=== PATIENT | female | born 1970 | race African-American/Black ===

== ENCOUNTER 2017-05-07 00:27 | Emergency (ER) | payer BC ==
[2017-05-07] MEDS ORDERED: DIPHENHYDRAMINE HCL 50 MG/ML VIAL IV ONE (03:58)
[2017-05-07] MEDS ORDERED: KETOROLAC TROMETHAMINE INJ/PF 30 MG/1 ML SDV IV ONE (03:58)
[2017-05-07] MEDS ORDERED: METOCLOPRAMIDE HCL INJ/PF 10 MG/2 ML SDV IV ONE (03:58)
--- NOTE | 2017-05-07 04:27 | RADIOLOGY REPORT (SQ) ---
EXAM DESCRIPTION: CT HEAD WITHOUT COMPLETED DATE/TIME: 05/07/2017 4:13 am REASON FOR STUDY: headache COMPARISON: CT head 08/18/2014. TECHNIQUE: Axial images acquired through the brain without intravenous contrast. Images reviewed wi th bone, brain and subdural windows. Images stored on PACS. All CT scanners at this facility use dose modulation, iterative reconstruction, and/or weight based d osing when appropriate to reduce radiation dose to as low as reasonably achievable (ALARA). [facility]: Dose Right [facility]: CareDose [facility]: Dose Right [facility]: Teradose 4D [facility]: [employer] RADIATION DOSE: mGy. LIMITATIONS: None. FINDINGS: VENTRICLES: Normal size and contour. CEREBRUM: No mass effect. No hemorrhage. No midline shift. Normal martínez/white matter differentiatio n. No evidence for acute territorial infarction. CEREBELLUM: No mass effect. No hemorrhage. No alteration of density. No evidence for acute infarct ion. EXTRAAXIAL SPACES: No fluid collections. ORBITS AND GLOBE: Symmetrical contour of the globes. CALVARIUM: No depressed skull fracture. PARANASAL SINUSES: No air-fluid level. SOFT TISSUES: No hematoma. IMPRESSION: No acute intracranial hemorrhage or acute territorial infarct. TECHNICAL DOCUMENTATION: JOB ID: [id number] [facility] Quality ID # [id number]: Final reports with documentation of one or more dose reduction techniques (e.g., Au tomated exposure control, adjustment of the mA and/or kV according to patient size, use of iterative reconstruction technique) 2010 [employer]- All Rights Reserved
--- NOTE | 2017-05-07 05:18 | ER Document Report ---
ED General - General Chief Complaint: Dizziness Stated Complaint: DIZZINESS Time Seen by Provider: 05/07/17 03:53 Notes: Patient is a 46-year-old female presents with complaint of back pain. The back pain is been ongoing for several months. It is unchanged. Starts in the right side of her back and goes down her right leg. No weakness or numbness into the leg. No loss of bowel control. No inability to urinate. No difficulty walking. Patient's second complaint is of a headache. Headache started today. Headache was mild in the beginning and then gradually worsened throughout the night. Headache is in the frontal aspect of her head. It is bilateral. No vomiting. No fevers. No weakness or numbness into her extremities. She has had similar headaches in the past. She said they usually occur relation to her blood pressure. She has never had imaging in the past to evaluate her head. No family history of cerebral aneurysms. No other complaints at this time. TRAVEL OUTSIDE OF THE [place] IN LAST 30 DAYS: No - Related Data Allergies/Adverse Reactions: No Known Allergies Allergy (Verified 07/29/12 10:13) Past Medical History - Social History Smoking Status: Unknown if Ever Smoked Frequency of alcohol use: None Drug Abuse: None Family History: Reviewed & Not Pertinent Patient has suicidal ideation: No Patient has homicidal ideation: No - Past Medical History Cardiac Medical History: Reports: Hx Hypertension Endocrine Medical History: Reports: Hx Diabetes Mellitus Type 2 Renal/ Medical History: Denies: Hx Peritoneal Dialysis GI Medical History: Reports: Hx Gastritis Past Surgical History: Reports: Hx Section - x1 - Immunizations Hx Diphtheria, Pertussis, Tetanus Vaccination: Yes Review of Systems - Review of Systems Notes: My Normal Review Basic REVIEW OF SYSTEMS: CONSTITUTIONAL : Denies fever, chills, or sweats. Denies recent illness. EENT: Denies eye, ear, throat, or mouth pain or symptoms. Denies nasal or sinus congestion. CARDIOVASCULAR: Denies chest pain. RESPIRATORY: Denies cough, cold, or chest congestion. Denies shortness of breath, difficulty breathing, or wheezing. GASTROINTESTINAL: Denies abdominal pain. Some nausea. No vomiting. GENITOURINARY: Denies difficulty urinating, painful urination, burning, frequency, or blood in urine. MUSCULOSKELETAL: Low back pain. SKIN: Denies rash or skin lesions. NEUROLOGICAL: Denies altered mental status or loss of consciousness. Has a headache. Denies weakness or paralysis or loss of use of either side. Denies problems with gait or speech. Denies sensory or motor loss. PSYCHIATRIC: Denies anxiety or stress or depression. ALL OTHER SYSTEMS REVIEWED AND NEGATIVE. Physical Exam - Vital signs Vitals: Temp Pulse Resp BP Pulse Ox 98.6 F 83 18 156/92 H 100 05/07/17 00:52 05/07/17 00:52 05/07/17 00:52 05/07/17 00:52 05/07/17 00:52 - Notes Notes: General Appearance: Well nourished, alert, cooperative, no acute distress, mild obvious discomfort. Vitals: reviewed, See vital signs table. Head: no swelling or tenderness to the head Eyes: PERRL, EOMI, Conjuctiva clear Mouth: No decreasd moisture Lungs: No wheezing, No rales, No rhonci, No accessory muscle use, good air exchange bilaterally. Heart: Normal rate, Regular rythm, No murmur, no rub Back: Some pain to palpation over the right lumbar paraspinal musculature. Remainder of back is nontender. Abdomen: Normal BS, soft, No rigidity, No abdominal tenderness, No guarding, no rebound, no abdominal masses, no organomegaly Extremities: strength 5/5 in all extremities, good pulses in all extremities, no swelling or tenderness in the extremities, no edema. Skin: warm, dry, appropriate color, no rash Neuro: speech clear, oriented x 3, normal affect, responds appropriately to questions. Cranial nerves II through XII are intact. Distal sensation intact. Patient is good strength in all 4 extremities. Normal patellar reflexes. Patient is able stand and balance herself without difficulty. Normal Romberg. Normal gait. Course - Vital Signs Vital signs: Temp Pulse Resp BP Pulse Ox 98.6 F 83 18 156/92 H 100 05/07/17 00:52 05/07/17 00:52 05/07/17 00:52 05/07/17 00:52 05/07/17 00:52 - Transfer of Care Notes: 05/07/17 05:[address] scan of this patient has had several similar headaches in the past but never had imaging. CT scan was negative. Patient's headache is completely resolved. I do not suspect subarachnoid hemorrhage because the headache is very gradual in onset. She has no associated focal neurologic deficits. Patient also has chronic low back pain with sciatica. She has no signs of central cord impingement on exam. I will discharge her home with prescription for muscle relaxer. Also discharge her home with prescription of Reglan to take with Benadryl for the recurring headaches. Encouraged her follow -up closely with her primary care doctor for reevaluation. Patient agrees with plan and will be discharged home. Patient encouraged to return to ER if she has worsening pain, any weakness or numbness into her legs, any fevers, any loss of bowel control, any urinary retention, or intractable vomiting. Dictation of this chart was performed using voice recognition software; therefore, there may be some unintended grammatical errors. Discharge - Discharge Clinical Impression: Headache Qualifiers: Headache type: unspecified Headache chronicity pattern: acute headache Intractability: not intractable Qualified Code(s): R51 - Headache Back pain Qualifiers: Back pain location: low back pain Chronicity: chronic Back pain laterality: right Sciatica presence: with sciatica Sciatica laterality: sciatica of right side Qualified Code(s): M54.41 - Lumbago with sciatica, right side Condition: Good Disposition: HOME, SELF-CARE Additional Instructions: LOW BACK PAIN: Three out of every four people will have an episode of disabling back pain during their lifetime. Most commonly the pain is due to straining of the muscles and ligaments in the low back. Usual treatment includes: (1) Rest on a firm surface. Avoid lying on your stomach. (2) Ice pack the painful area. After a few days, gentle heat may be used intermittently to relax the area, or ice packs can be continued. (3) Medication may be needed -- muscle relaxers and antiinflammatory medicines are commonly used. (4) As the back improves, exercises are prescribed to strengthen the back and abdominal muscles. Your doctor will advise you on the proper care for your back at each stage in your recovery. You may be better in a few days -- or healing may take several weeks. If new symptoms of a "herniated disc" (radiation of pain, numbness, or tingling down the back of the leg or weakness in the leg) occur, you should be re-examined. Further testing may be necessary. PAIN MEDICATION INJECTION: You have received an injection of a pain medication. You should experience significant pain relief within 45 minutes. If this injection was a narcotic -- it will impair your judgement, slow your reaction time and make you sleepy (as well as relieve your pain). Narcotics also can cause nausea. You should not drive, work with machinery, or perform any task requiring mental alertness until all effects of the medication are gone -- six to eight hours. Do not take any alcohol, or sedatives, and do not take any other medication without checking with your physician. MUSCLE RELAXERS: Muscle relaxing medications are usually prescribed for acute muscle spasm or injury to the neck and back. They are often combined with antiinflammatory pain medication for increased relief. You may stop the muscle relaxer when the pain and stiffness have improved. Start the medication again if spasms recur. Muscle relaxers may cause drowsiness, especially with the first dose. Do not operate machinery or drive while under the effects of the medication. Most muscle relaxers last up to 24 hours. Do not combine the medication with alcohol. ICE PACKS: Apply ice packs frequently against the painful area. Many different schedules are recommended, such as "20 minutes on, 20 minutes off" or "one hour ice, two hours rest." If you need to work, you may need to go longer between ice treatments. You should plan to have the area ice packed AT LEAST one fourth of the time. The ice should be applied over the wrap, tape, or splint, or over a layer of cloth -- not directly against the skin. Some ice bags have a built-in cloth and can be put directly on the skin. WARM PACKS: After approximately two days, apply gentle heat (such as a heating pad or hot water bottle) for about 20 to 30 minutes about every two hours -- at least four times daily. Warmth and elevation will help you make a more rapid recovery , and will ease the pain considerably. Do not use HOT heat, and never apply heat for longer than 30 minutes. The continuous heat can invisibly damage skin and muscles -- even when no burn is seen on the surface. Damaged muscles can make you MORE sore. FOLLOW-UP CARE: If you have been referred to a physician for follow-up care, call the physician s office for an appointment as you were instructed or within the next two days. If you experience worsening or a significant change in your symptoms, notify the physician immediately or return to the Emergency Department at any time for re-evaluation. HEADACHE: The physician does not feel that the headache you are experiencing has a serious underlying cause. Most headaches are due to emotional stress, with resultant muscle tension (tension headache). Occasionally, headaches are secondary to changes in the blood vessels of the scalp (vascular headache and migraine headache). Sometimes, a headache is the first symptom of another developing illness, such as a viral infection. You have no evidence of stroke, bleeding, meningitis, or other serious cause of your headache. The treatment of headaches varies with the severity and cause of the pain. Not all headaches need pain shots. In fact, there is evidence that using narcotics for headaches may make them worse in the long run. The physician will determine the therapy that's in your best interest. If you develop a fever, if the headache is different from any you've previously experienced, or if the headache progressively worsens, then call your physician at once or go to the emergency room. REGLAN (METOCLOPRAMIDE): Reglan has been prescribed. This medicine affects the stomach and intestines. It can be used to treat nausea and vomiting, to prevent reflux of stomach acid up into the esophagus, or to increase the contractions of the stomach and intestines. It is often prescribed for esophagitis, and for paralysis of the stomach in diabetics. Reglan can cause either mild restlessness or drowsiness. You should contact the doctor at once if you become extremely restless, anxious, or cannot sleep, or if you develop uncontrollable motions of the lips, tongue, or jaw. Do not take alcohol with this medicine. Do not drive or operate machinery until you have been taking this medicine long enough to know how it affects you. Call the doctor if you develop abdominal pains, lightheadedness, black stool, or blood in the stool or vomitus. USE OF DIPHENHYDRAMINE: Diphenhydramine (Benadryl) is an antihistamine and has been recommended to help treat your headache and to prevent side effects of other medications used to treat headaches. The medication can be repeated four times daily. Age Elixir (12.5 mg/tsp) 25 mg pill adult 1-2 tabs Antihistamines may cause drowsiness, especially with the first dose. Do not operate machinery or drive while under the effects of the medication. Do not combine the medication with alcohol, or with any other medication without talking to your doctor. FOLLOW-UP CARE: If you have been referred to a physician for follow-up care, call the physician s office for an appointment as you were instructed or within the next two days. If you experience worsening or a significant change in your symptoms, notify the physician immediately or return to the Emergency Department at any time for re-evaluation. Please return to the ER if you have worsening pain, fevers, loss of bowel control, inability to urinate, leg weakness, worsening leg numbness, or if you feel unwell. Please do not drive after taking the prescribed medications as they may make you sleepy and impair your judgement. Prescriptions: Metaxalone [Skelaxin 800 mg Tablet] 800 mg PO ASDIR PRN #20 tablet PRN Reason: Metoclopramide HCl [Reglan 10 mg Tablet] 1 tab PO ASDIR PRN #25 tablet PRN Reason: Forms: Return to Work
[2017-05-07 06:07] VITALS: BP 143/92
== END 2017-05-07 05:55 | disposition home or self-care (01) ==
LOC: ER 00:27
DX: R51 Headache (principal); M54.41 Lumbago with sciatica, right side; R42 Dizziness and giddiness; I10 Essential (primary) hypertension; E11.9 Type 2 diabetes mellitus without complications
CPT/HCPCS: 99284; 96374; 96375; 70450; J1200; J1885; J2765

== ENCOUNTER 2019-06-06 16:30 | Emergency (ER) | payer BC ==
[2019-06-06] MEDS ORDERED: FAMOTIDINE INJ/PF 20 MG/2 ML SDV IV ONE (17:35)
[2019-06-06] MEDS ORDERED: DIPHENHYDRAMINE HCL 50 MG/ML VIAL IV ONE (17:35)
[2019-06-06] MEDS ORDERED: METHYLPREDNISOLONE INJ 125 MG/2 ML SDV IV ONE (17:35)
--- NOTE | 2019-06-06 17:36 | ER Document Report ---
ED Medical Screen (RME) - General Chief Complaint: Allergic Reaction Stated Complaint: POSSIBLE INSECT BITE Time Seen by Provider: 06/06/19 17:30 Mode of Arrival: Ambulatory Information source: Patient Notes: Patient states that she got bit by an insect to the left side of her neck around 3:00 today. Patient complains of swelling and itching to left side of neck. Patient states she does have some scratchiness to the throat although no difficulty breathing. Patient reports an allergy to bee stings. I have greeted and performed a rapid initial assessment of this patient. A comprehensive ED assessment and evaluation of the patient, analysis of test results and completion of the medical decision making process will be conducted by additional ED providers. TRAVEL OUTSIDE OF THE [place] IN LAST 30 DAYS: No - Related Data Allergies/Adverse Reactions: No Known Allergies Allergy (Verified 06/06/19 16:36) Past Medical History - Past Medical History Cardiac Medical History: Reports: Hx Hypertension Endocrine Medical History: Reports: Hx Diabetes Mellitus Type 2 Renal/ Medical History: Denies: Hx Peritoneal Dialysis GI Medical History: Reports: Hx Gastritis Past Surgical History: Reports: Hx Section - x1 - Immunizations Hx Diphtheria, Pertussis, Tetanus Vaccination: Yes Physical Exam - Vital signs Vitals: Temp Pulse Resp BP Pulse Ox 98.7 F 102 H 14 154/99 H 93 06/06/19 16:40 06/06/19 16:40 06/06/19 16:40 06/06/19 16:40 06/06/19 16:40 - General Notes: Patient with raised erythematous lesions to left shoulder and trapezius area, lesions do not look like typical hives and are raised and indurated. Course - Vital Signs Vital signs: Temp Pulse Resp BP Pulse Ox 98.7 F 102 H 14 154/99 H 93 06/06/19 16:40 06/06/19 16:40 06/06/19 16:40 06/06/19 16:40 06/06/19 16:40
[2019-06-06] MEDS ORDERED: DIPHENHYDRAMINE HCL 25 MG CAPSULE PO ONE (19:09)
[2019-06-06] MEDS ORDERED: FAMOTIDINE 20 MG TABLET PO ONE (19:09)
[2019-06-06] MEDS ORDERED: PREDNISONE 20 MG TABLET PO ONE (19:09)
--- NOTE | 2019-06-06 19:52 | ER Document Report ---
HPI - HPI Patient complains to provider of: insect bite, allergic reaction Time Seen by Provider: 06/06/19 17:30 Onset/Duration: Sudden, Persistent Quality of pain: Achy Severity: Moderate Pain Level: 2 Context: 48 yr old female pt, with the listed pmh to include DM2 and htn, here for and itchy minimally painful rash to her posterior and left lateral neck x the last few hours. states she was just sitting there and all of the sudden she felt some type of insect biting her on the back and left side of her neck right around her shirt collar line several times. states she started swatting and patting at the area and flicked the bug off but she never actually saw what type of bug it was. denies any bites any where else. she states not long after it happened her t hroat felt a tiny bit "weird" and scratchy so she took one otc benadryl around 3hrs ago and due to itching persisting and insect bite areas getting larger she came in for eval. she states her sugars run well and her last A1c was good she was told. no hx of dka. she is only on oral hypoglycemics. she denies any abnormal throat sensation or other sx now. denies tongue or lip swelling. denies any hx of anaphylaxis to insects or in general previously. no other known new exposures/meds/foods/sick contacts/hx of this before/recent travel/pets. no one around them has it. no hx of drug use. no other known source or cause. no recent illness, or recent abx or steroids. no hx of asthma. rash is itchy, painful, and without bleeding/drainage. hasn't sought care until now. no tick bites. rash started on neck. utd on shots. hasn't put anything on it. benadryl taken. no trouble breathing/swallowing/handling secretions. no hx of familial urticaria or stress induced urticaria. denies . no other complaints at this time. Similar symptoms previously: No Recently seen / treated by doctor: No - ROS Systems Reviewed and Negative: Yes All other systems reviewed and negative - to include 10 systems, unless mentioned in the hpi - REPRODUCTIVE Reproductive: DENIES: : - DERM Skin Color: Normal Past Medical History - General Information source: Patient - Social History Smoking Status: Never Smoker Chew tobacco use (# tins/day): No Frequency of alcohol use: Occasional Drug Abuse: None Family History: Reviewed & Not Pertinent Patient has suicidal ideation: No Patient has homicidal ideation: No - Past Medical History Cardiac Medical History: Reports: Hx Hypertension Pulmonary Medical History: Denies: Hx Asthma, Hx Respiratory Failure Endocrine Medical History: Reports: Hx Diabetes Mellitus Type 2. Denies: Hx Hyperthyroidism, Hx Hypothyroidism Renal/ Medical History: Denies: Hx Peritoneal Dialysis GI Medical History: Reports: Hx Gastritis, Hx Gastroesophageal Reflux Disease, Hx Hiatal Hernia Psychiatric Medical History: Reports: Hx Anxiety Infectious Medical History: Reports: None Past Surgical History: Reports: Hx Section - x1 - Immunizations Immunizations up to date: Yes Hx Diphtheria, Pertussis, Tetanus Vaccination: Yes Vertical Provider Document - CONSTITUTIONAL General Appearance: No Apparent Distress Notes: GENERAL_APPEARANCE: alert, cooperative, no_obvious_discomfort. pleasant, middle aged female, smiling, speaking in full sentences, easily sitting up, in no sign of pain or resp distress. not intractably scratching, no sign of anaphylaxis. VITALS: reviewed, see vital signs table. HEAD: normocephalic, atraumatic, no gordon signs, no raccoon eyes EYES: conjunctiva_clear. EOMI, PERRL. no eyelid swelling. no photophobia, no drainage EARS: normal tms and canals bilat, no rash. no drainage NOSE:no drainage or bleeding MOUTH: (-)decreased moisture. THROAT: no_tonsilar_inflammation/hypertrophy/exudate, no_airway_obstruction. no tongue or lip swelling, no drooling, tripoding, voice change or stridor. no sign of anaphylaxis. no oral lesions. no thrush NECK: no tenderness or swelling. full rom. full strength. no meningeal signs. no lymphadenopathy. no thyromegaly. LUNGS: no_wheezing, ctab, (-)accessory muscle use, good air exchange bilateral. HEART: normal_rate, normal_rhythm, ABDOMEN: normal_BS, soft, no abd tenderness, no guarding, rebound, distension, or peritoneal signs, no cva ttp EXTREMITIES: strength 5/5 in all extremities, no swelling\\tenderness in the extremities, no edema. full rom. normal gait. brisk cap refill. 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 NEURO: motor and sensation intact to light touch, cranial nerves 2-12 intact, cerebellar fxn intact SKIN: warm, dry, good color, rash: there are approx <10 raised erythematous maculopapules varying in in size from 0.5cm up to 2cm roughly that are circular and scattered on the posterior neck where it is the worst and also on the left posterior aspect of the neck that appear to have a large localized allergic reaction to whatever insect bit her. they are not anteirorly or on the right side or circumferentially. there is no actual throat swelling. no sign of ludwigs or peritonsilar abscess, no necrosis, areas with minimal ttp. There is no fluctuation, drainage, streaking, bleeding, or drainable fluid collection. There is no central clearing. not tinea or classic hive like. It does hannah. not dermatomal. not on palms soles, intraorally, or in the webspaces. no sign of tens, erythema multiforme, or mayte nagi. no target lesions. MENTAL_STATUS: speech clear, oriented_X_3, responds appropriately to questions. - INFECTION CONTROL TRAVEL OUTSIDE OF THE [place] IN LAST 30 DAYS: No Course - Re-evaluation Re-evalutation: pt here for a likely small area that has a large localized allergic reaction to some unknown insect bites mostly on the back of her neck and some on the left side of her neck more posterior than anterior. she has no airway involvement. no sign of anaphylaxis, she is non toxic. responded well to triage meds listed po. feels back to her baseline other than some residual itching over the bites. she has no prior hx of anaphylaxis. advised sx care. will dc with benadryl, zantac, and steroids for a few days. she is a type 2 diabetic only on oral hypoglycemics and assures me she has good control of her sugars. advised her the steroids may make her sugars rise and she needs to keep a close check on her sugars while on them and for a few days after and return to the er if they get high. i do feel steroids are warranted given the large localized allergic reaction to these insect bites and its location anatomically. gave medication precautions. will also dc with an epipen should sx worsen or reoccur and instructed her extensively on only when to use it and then to immediately call 911 should she have to use it. she can also apply cool compresses to the area. tylenol or motrin prn pain. hydrocortisone cream to the area. advised sx care. 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 return for any worsening symptoms. vss. well appearing. satting well on ra. neurononfocal. pt understands and agrees to plan. On reexam, pt improved with tx listed. remained stable. nontoxic. well appearing. pain and sx controlled. tolerating po. requesting to go home. no sign of anaphylaxis. rash minimizing in size. serial exams continue to improve and remain reassuring after an appropriate period of observation in attempt to prevent any worsening of sx. vitals improved. Documentation achieved through voice recording which my lead to some occasional accidental typographical errors. Extensive efforts have been made to proof read documentation to make sure these are the least as possible. Category Date Time Status Saline Lock (ED) NOW Care 06/06/19 17:35 Active Vital Signs (ED) STAT Care 06/06/19 20:19 Active Diphenhydramine HCl [Benadryl 25 mg Capsule] Med 06/06/19 19:09 Discontinued 25 mg PO NOW ONE Famotidine [Pepcid 20 mg Tablet] Med 06/06/19 19:09 Discontinued 20 mg PO NOW ONE Prednisone [Deltasone 20 mg Tablet] Med 06/06/19 19:09 Discontinued 60 mg PO NOW ONE - Vital Signs Vital signs: Temp Pulse Resp BP Pulse Ox 98.7 F 102 H 14 154/99 H 93 06/06/19 16:40 06/06/19 16:40 06/06/19 16:40 06/06/19 16:40 06/06/19 16:40 Temp Pulse Resp BP Pulse Ox 06/06/19 20:21 98.4 F 73 16 142/90 H 100 06/06/19 16:40 98.7 F 102 H 14 154/99 H 93 Discharge - Discharge Clinical Impression: Allergic reaction to insect bite Insect bite of neck with local reaction Qualifiers: Encounter type: initial encounter Qualified Code(s): S10.96XA - Insect bite of unspecified part of neck, initial encounter Condition: Good Disposition: HOME, SELF-CARE Instructions: Acute Allergic Reaction ([facility]) Additional Instructions: Follow-up with your PCP in 1 to 2 days. Return for any worsening symptoms. cool compresses to the area. tylenol or motrin for any pain. hydrocortisone cream to the area. only use the epipen as prescribed/discussed if your tongue/lips/throat are swelling and you have difficulty breathing/swallowing/talking and then call 911 immediately. keep a close check on your sugars while taking the steroids as they may increase. do not scratch the areas. Prescriptions: Diphenhydramine HCl [Benadryl] 25 mg PO TIDP PRN #20 capsule PRN Reason: Rash Epinephrine [Epipen 2-Gilberto] 0.3 mg IM ASDIR PRN #1 packet PRN Reason: Prednisone [Deltasone 20 mg Tablet] 40 mg PO DAILY 5 Days #10 tablet Ranitidine HCl [Zantac] 150 mg PO BID PRN #20 tablet PRN Reason: Rash Referrals: KENNEDI LOPEZ MD [Primary Care Provider] - Follow up tomorrow
[2019-06-06 20:24] VITALS: BP 142/90
== END 2019-06-06 20:24 | disposition home or self-care (01) ==
LOC: ER 16:30
DX: S10.96XA Insect bite of unspecified part of neck, initial encounter (principal); T78.40XA Allergy, unspecified, initial encounter; R21 Rash and other nonspecific skin eruption; W57.XXXA Bitten or stung by nonvenomous insect and other nonvenomous arthropods, initial encounter; I10 Essential (primary) hypertension; E11.9 Type 2 diabetes mellitus without complications
CPT/HCPCS: 99283; J7512

== ENCOUNTER 2019-08-28 00:48 | Emergency (ER) | payer BC ==
[2019-08-28 01:36] LABS: ABSOLUTE BASOPHILS # (AUTO) 0.1 10^3/uL (0.0-0.2); ABSOLUTE EOSINOPHILS # (AUTO) 0.1 10^3/uL (0.0-0.6); ABSOLUTE MONOCYTES (AUTO) 0.8 10^3/uL (0.1-1.4); BASOPHILS % (AUTO) 1.1 % (0-2); EOSINOPHILS % (AUTO) 0.9 % (0-6); HEMATOCRIT 38.3 % (36.0-47.0); HEMOGLOBIN 12.7 g/dL (12.0-15.5); LYMPHOCYTES % (AUTO) 30.6 % (13-45); MEAN CORPUSCULAR HEMOGLOBIN 28.4 pg (27.0-33.4); MEAN CORPUSCULAR VOLUME 86 fl (80-97); MONOCYTES % (AUTO) 5.8 % (3-13); PLATELET COUNT 354 10^3/uL (150-450); RED BLOOD COUNT 4.46 10^6/uL (3.72-5.28); RED CELL DISTRIBUTION WIDTH 14.4 % (11.5-14.0); SEGMENTED NEUTROPHILS % (AUTO) 61.6 % (42-78); TOTAL CELLS COUNTED % (AUTO) 100 %
--- NOTE | 2019-08-28 01:40 | RADIOLOGY REPORT (SQ) ---
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 Shortness of breath. COMPARISON: 09/19/2016 FINDINGS: The heart size is within normal limits. No consolidation, pleural effusion, or pneumothorax is seen. No acute bony findings. IMPRESSION: No acute cardiopulmonary disease.
[2019-08-28 02:00] LABS: ALBUMIN 3.9 g/dL (3.5-5.0); ALKALINE PHOSPHATASE 107 U/L (38-126); ANION GAP 10 (5-19); ASPARTATE AMINO TRANSFERASE 19 U/L (14-36); BILIRUBIN,DIRECT 0.1 mg/dL (0.0-0.4); BILIRUBIN,TOTAL 0.3 mg/dL (0.2-1.3); BLOOD UREA NITROGEN 15 mg/dL (7-20); CALCIUM 9.6 mg/dL (8.4-10.2); CARBON DIOXIDE 27 mmol/L (22-30); CHLORIDE 102 mmol/L (98-107); CREATINE KINASE 134 U/L (30-135); GLUCOSE 127 mg/dL (75-110); POTASSIUM 3.5 mmol/L (3.6-5.0); TOTAL PROTEIN 7.2 g/dL (6.3-8.2)
[2019-08-28 02:11] LABS: CREATINE KINASE MB 0.33 ng/mL (<4.55)
[2019-08-28 02:13] LABS: TROPONIN I < 0.012 ng/mL
--- NOTE | 2019-08-28 03:07 | ER Document Report ---
ED Cardiac - General Chief Complaint: Chest Pressure Stated Complaint: CHEST PAIN Time Seen by Provider: 08/28/19 02:22 Primary Care Provider: KENNEDI LOPEZ MD [Primary Care Provider] - Follow up as needed TRAVEL OUTSIDE OF THE [place] IN LAST 30 DAYS: No - Related Data Allergies/Adverse Reactions: No Known Allergies Allergy (Verified 06/06/19 16:36) Home Medications: doxepin. benazepril. triamt/hctz. potassium cl. labetalol. metformin Past Medical History - Social History Smoking Status: Never Smoker Family History: Reviewed & Not Pertinent Patient has suicidal ideation: No Patient has homicidal ideation: No - Past Medical History Cardiac Medical History: Reports: Hx Hypertension Pulmonary Medical History: Denies: Hx Asthma, Hx Respiratory Failure Endocrine Medical History: Reports: Hx Diabetes Mellitus Type 2. Denies: Hx Hyperthyroidism, Hx Hypothyroidism Renal/ Medical History: Denies: Hx Peritoneal Dialysis GI Medical History: Reports: Hx Gastritis, Hx Gastroesophageal Reflux Disease, Hx Hiatal Hernia Psychiatric Medical History: Reports: Hx Anxiety Past Surgical History: Reports: Hx Section - x1 - Immunizations Immunizations up to date: Yes Hx Diphtheria, Pertussis, Tetanus Vaccination: Yes Physical Exam - Vital signs Vitals: Resp BP Pulse Ox 12 131/88 H 100 08/28/19 01:10 08/28/19 01:10 08/28/19 01:10 - Notes Notes: Patient was brought in by paramedics with complaint of chest pain that started about 1 hour ago. Pain is located left anterior chest and nonradiating. She describes as a heaviness. Denies any previous history of similar type pain. She says she has some nausea and once when she got here. She had no diaphoresis but did have some shortness of breath. Denies any recent fevers cough or trauma falls or heavy lifting. The pain does not change with movement or breathing when she walks around. Given aspirin nitroglycerin by paramedics with no relief of her symptoms. Patient is also complaining of a frontal headache that started about the same time. Headache came on gradually got progressively worse. Was noted clinically of headache and that there was anxious of the head. Not associate with any abnormal vision. His medical history is significant for hypertension and prediabetes. No history of coronary artery disease or elevated cholesterol. Social history he does not smoke but does drink. This meds includes depovera. Only history is Course - Re-evaluation Re-evalutation: 08/28/19 04:30 ED patient remained stable she was given Zofran for the nausea and Motrin for pain exam she says chest pain is gone a headache is better. Medical decision making patient presents with chest pain and a headache. Headache is not consistent with subarachnoid or meningitis she does have reproducible chest wall pain. Her heart score puts her at low risk. No life- threatening cause of her chest pain she looks well can be discharged home was advised will need to have a blood pressure rechecked 08/28/19 04:31 her white count is minimally elevated. Is very nonspecific and may just be demargination from vomiting no source of infection - Vital Signs Vital signs: Temp Pulse Resp BP Pulse Ox 12 131/88 H 100 08/28/19 01:10 08/28/19 01:10 08/28/19 01:10 - Laboratory Result Diagrams: 08/28/19 00:51 08/28/19 00:51 Laboratory results interpreted by me: 08/28/19 08/28/19 00:51 00:51 WBC 13.0 H RDW 14.4 H Potassium 3.5 L Glucose 127 H Discharge - Discharge Clinical Impression: HTN (hypertension) Qualifiers: Hypertension type: essential hypertension Qualified Code(s): I10 - Essential (primary) hypertension Chest pain Qualifiers: Chest pain type: unspecified Qualified Code(s): R07.9 - Chest pain, unspecified Headache Qualifiers: Headache type: unspecified Headache chronicity pattern: acute headache Disposition: HOME, SELF-CARE Instructions: Chest Wall Pain ([facility]), Chest Pain of Unclear Cause ([facility]), Headache ([facility]) Additional Instructions: Please read the discharge instructions Follow-up with your family doctor in 2 to 3 days if not better Your blood pressure was elevated need to be rechecked again in 1 week to determine if you need your medications adjusted Return to the ED if you get worse or can follow-up with your family doctor Prescriptions: Ketorolac Tromethamine [Toradol 10 mg Tablet] 10 mg PO Q6HP PRN #10 tablet PRN Reason: Forms: Elevated Blood Pressure Referrals: KENNEDI LOPEZ MD [Primary Care Provider] - Follow up as needed
[2019-08-28] MEDS ORDERED: IBUPROFEN 600 MG TABLET PO ONE (03:27)
[2019-08-28] MEDS ORDERED: ONDANSETRON HCL INJ/PF 4 MG/2 ML SDV IV ONE (03:27)
[2019-08-28 05:05] VITALS: BP 141/110
--- NOTE | 2019-08-28 22:43 | EKG REPORT ---
SEVERITY:- NORMAL ECG - SINUS RHYTHM : Confirmed by: Margoth Castañeda 28-Aug-2019 22:42:21
== END 2019-08-28 05:10 | disposition home or self-care (01) ==
LOC: ER 00:48
DX: R07.89 Other chest pain (principal); R51 Headache; I10 Essential (primary) hypertension; R11.2 Nausea with vomiting, unspecified; F41.9 Anxiety disorder, unspecified; E11.9 Type 2 diabetes mellitus without complications; Z79.84 Long term (current) use of oral hypoglycemic drugs; Z79.899 Other long term (current) drug therapy; R06.02 Shortness of breath
CPT/HCPCS: 93005; 99284; 96374; 36415; 82553; 82550; 85025; 80053; 84484; 71046; 93010; J2405